=== PATIENT | male | born 1955 | race Caucasian/White ===

== ENCOUNTER → 2023-09-14 07:08 | Outpatient (CLI) | payer MEDICARE, OTHER, SELFPAY ==
[2023-09-14 08:11] LABS: Add Manual Diff / Slide Review NO; Basophils Absolute Auto 0 /uL (0-100); Basophils Percent Auto 0.7 % (0-2); Eosinophils Absolute Auto 100 /uL (0-450); Eosinophils Percent Auto 1.8 % (2-4); Hematocrit 43.5 % (41-53); Hemoglobin 15.1 g/dL (13.5-17.5); Lymphocytes Absolute Auto 2000 /uL (1100-4500); Mean Corpuscular HGB Conc 34.7 % (30-36); Mean Corpuscular Hemoglobin 33.3 PG (26-34); Monocytes Absolute Auto 400 /uL (0-900); Monocytes Percent Auto 6.4 % (3-14); Neutrophils Absolute Auto 3200 /uL (1500-7000); Neutrophils Percent Auto 56.1 % (50-75); Platelet Count 220 X10^3/uL (150-400); Red Blood Cell Count 4.53 X10^6/uL (4.5-5.9); Red Cell Distribution Width 13.1 % (11.6-14.8); White Blood Cell Count 5.7 X10^3/uL (4.5-11.0)
[2023-09-14 08:43] LABS: Alanine Aminotransferase 28 IU/L (<50); Albumin 4.1 g/dL (3.5-5.0); Albumin Globulin Ratio 1.8 (1.0-2.8); Alkaline Phosphatase 71 U/L (38-126); Aspartate Aminotransferase 39 IU/L (17-59); BUN Creatinine Ratio 19.3 (6-22); Blood Urea Nitrogen 16 mg/dL (9-20); Calcium 8.7 mg/dL (8.4-10.2); Carbon Dioxide 31 mmol/L (22-32); Chloride 103 mmol/L (98-107); Cholesterol 185 mg/dL (140-199); Estimated Glomerular Filt Rate > 60 mL/min (>60); Globulin 2.3 g/dL (1.7-4.1); Glucose 80 mg/dL (80-110); HDL Cholesterol 77 mg/dL (40-60); HEMOLYSIS < 15 (0-50); LDL Cholesterol Calculated 94 mg/dL (<100); Potassium 4.4 mmol/L (3.4-5.1); Sodium 138 mmol/L (137-145); Total Protein 6.4 g/dL (6.3-8.2); Triglycerides 71 mg/dL (35-150)
[2023-09-14 09:13] LABS: Prostate Specific Antigen Scrn 7.41 ng/mL (0.1-4.0)
== END ==
PROVIDERS: PCP Family Medicine; Referring Provider Family Medicine; Visit Provider Family Medicine
DX: Z00.00 Encounter for general adult medical examination without abnormal findings (principal); Z12.5 Encounter for screening for malignant neoplasm of prostate
CPT/HCPCS: 36415; 80053; 80061; 85025; G0103

== ENCOUNTER → 2024-06-02 08:51 | Outpatient (CLI) | payer MEDICARE, OTHER, SELFPAY ==
--- NOTE | 2024-06-02 08:52 | DI.RAD.S_ITS ---
PROCEDURE: XR HAND LT MIN 3V INDICATIONS: Left-hand injury TECHNIQUE: 3 views of the hand(s) acquired. COMPARISON: None. FINDINGS: Bones: There are no fracture or other osseous abnormalities Joints: Minimal degenerative change in the 1st CMC and all interphalangeal joints noted. Soft tissues: No soft tissue abnormality. IMPRESSION: Minimal multilevel degeneration Dictated by: Manuel Dowd M.D. on 06/02/2024 at 12:06 Approved by: Manuel Dowd M.D. on 06/02/2024 at 12:07
== END ==
PROVIDERS: PCP Family Medicine; Referring Provider Nurse Practitioner Family; Visit Provider Nurse Practitioner Family
DX: S69.92XA Unspecified injury of left wrist, hand and finger(s), initial encounter (principal); X58.XXXA Exposure to other specified factors, initial encounter
CPT/HCPCS: 73130

== ENCOUNTER → 2024-09-13 12:22 | Outpatient (CLI) | payer MEDICARE, OTHER, SELFPAY ==
[2024-09-13 13:45] LABS: Alanine Aminotransferase 32 IU/L (<50); Albumin 4.4 g/dL (3.5-5.0); Alkaline Phosphatase 72 U/L (38-126); Aspartate Aminotransferase 44 IU/L (17-59); BUN Creatinine Ratio 16.9 (6-22); Bilirubin Total 0.8 mg/dL (0.2-1.3); Blood Urea Nitrogen 14 mg/dL (9-20); Calcium 9.2 mg/dL (8.4-10.2); Carbon Dioxide 30 mmol/L (22-32); Chloride 101 mmol/L (98-107); Cholesterol 197 mg/dL (140-199); Estimated Glomerular Filt Rate > 60 mL/min (>60); Globulin 2.2 g/dL (1.7-4.1); Glucose 84 mg/dL (70-99); HDL Cholesterol 77 mg/dL (40-60); HEMOLYSIS < 15 (0-50); LDL Cholesterol Calculated 105 mg/dL (<100); Potassium 4.6 mmol/L (3.4-5.1); Sodium 137 mmol/L (137-145); Total Protein 6.6 g/dL (6.3-8.2); Triglycerides 75 mg/dL (35-150)
== END ==
PROVIDERS: PCP Family Medicine; Referring Provider Family Medicine; Visit Provider Family Medicine
DX: E78.5 Hyperlipidemia, unspecified (principal); Z87.898 Personal history of other specified conditions; E78.9 Disorder of lipoprotein metabolism, unspecified
CPT/HCPCS: 80053; 80061; 84153; 84154

== ENCOUNTER → 2024-11-03 15:18 | Outpatient (CLI) | payer MEDICARE, OTHER, SELFPAY ==
--- NOTE | 2024-11-03 15:19 | DI.MRI.S_ITS ---
PROCEDURE: MR PELVIC PROSTATE PROTOCOL INDICATIONS: screening TECHNIQUE: Coronal HASTE, axial T1 FSE with fat saturation, 3-plane nonbreath-hold T2 FSE. After the administration of contrast, dynamic axial, delayed axial and coronal VIBE or 2-D FLASH with fat saturation through the pelvis. Diffusion weighted imaging and ADC was performed. COMPARISON: None. FINDINGS: Image quality: Diffusion weighted and dynamic contrast enhanced images are diagnostic. Prostate: Gland size is 6.2 x 4.4 x 3.8 cm; ellipsoid gland volume is 54 mL. PSA density is 0.143 Transitional zone heterogenous nodules are present, either well encapsulated or mostly encapsulated, compatible with PI-RADS 1 or 2 likely BPH nodules. Left apex peripheral zone lesion in the anterior portion measures 1.2 x 0.9 x 0.9 cm. DWI score 4. T2 score 3. DCE positive. PI-RADS 4. (Reference image 07/10) Right apex posterior peripheral zone lesion measures 1.1 x 0.7 x 0.7 cm. DWI score 3. T2 score 3. DCE negative. PI-RADS 3. (Reference image 07/11 Midline posterior central gland lesion measures 1.8 cm (/). This is peers symmetric, though signal abnormality is present. T2 score 3. DWI score 5. DCE negative. PI-RADS 4. (Reference image /) No definite extracapsular disease. Seminal vesicles appear clear. Genitourinary system: Under distended urinary bladder. Bowel and peritoneum: No bowel obstruction or lower abdomen. No drainable abscess or ascites Nodes and vessels: No aneurysmal artery identified. No enlarged lymph nodes by size criteria Soft tissues: No significant pelvic wall abnormality Bones: No aggressive appearing osseous abnormality. Bilateral hip arthroplasties. IMPRESSION: PI-RADS 3 and 4 lesions as described above. No extracapsular disease or seminal vesicle involvement identified. No enlarged lymph nodes by size criteria in the pelvis. No suspicious osseous lesions in the visualized anatomy. Bilateral hip arthroplasties. Dictated by: Ibrahima Rubio M.D. on 11/04/2024 at 9:19 Approved by: Ibrahima Rubio M.D. on 11/04/2024 at 9:30
== END ==
PROVIDERS: PCP Family Medicine; Referring Provider Family Medicine; Visit Provider Family Medicine
DX: N42.9 Disorder of prostate, unspecified (principal); Z87.898 Personal history of other specified conditions; Z96.643 Presence of artificial hip joint, bilateral
CPT/HCPCS: 72197; A9579